=== PATIENT | female | born 1970 | race Native Hawaiian/Other Pacific Islander ===

== ENCOUNTER 2019-07-01 11:20 | Outpatient (CLI) | payer BC | END 2019-07-01 21:14 | disposition home or self-care (01) | LOC: RAD 11:20 | DX: M54.5 Low back pain (principal) ==

== ENCOUNTER 2019-07-07 13:29 | Outpatient (CLI) | payer BC | END 2019-07-07 16:00 | disposition home or self-care (01) | LOC: MRI 13:29 | DX: M54.5 Low back pain (principal); Z12.31 Encounter for screening mammogram for malignant neoplasm of breast ==

== ENCOUNTER 2021-06-13 11:03 | Outpatient (CLI) | payer BC ==
[2021-06-13 11:26] LABS: PLATELET COUNT 265 K/uL (152-353)
[2021-06-13 11:36] LABS: POTASSIUM 4.2 mmol/L (3.6-5.2)
== END 2021-06-13 21:01 | disposition home or self-care (01) ==
LOC: LAB 11:03
PROVIDERS: ATTEND Internal Medicine
DX: Z00.00 Encounter for general adult medical examination without abnormal findings (principal); Z13.820 Encounter for screening for osteoporosis
CPT/HCPCS: 36415; 80053; 80061; 81000; 82306; 83036; 84439; 84443; 85027

== ENCOUNTER 2021-07-04 13:00 | Outpatient (CLI) | payer BC | END 2021-07-04 19:13 | disposition home or self-care (01) | LOC: MAMMO 13:00 | PROVIDERS: ATTEND Internal Medicine | DX: Z12.31 Encounter for screening mammogram for malignant neoplasm of breast (principal); Z13.820 Encounter for screening for osteoporosis ==